=== PATIENT | female | born 2000 | race Caucasian/White ===

== ENCOUNTER 2023-09-07 23:53 | Emergency (ER) | payer OTHER, SELFPAY ==
[2023-09-08 00:04] VITALS: BP 157/98; PULSE 78; RESP 18; TEMP 36.7; O2SAT 99; BMI 48.3
--- NOTE | 2023-09-08 00:18 | CRLHL7_ITS ---
For Patients: As a result of the Century Cures Act, medical imaging exams and procedure reports are released immediately into your electronic medical record. You may view this report before your referring provider. If you have questions, please contact your health care provider. INDICATION: Right upper quadrant abdominal pain. TECHNIQUE: CT abdomen and pelvis acquired with 143 cc Isovue 370 IV contrast. COMPARISON: None. FINDINGS: Lower chest: Unremarkable. Liver: Unremarkable. Normal in size and attenuation. No suspicious masses. Gallbladder and bile ducts: Unremarkable. No stones or inflammation. No biliary ductal dilatation. Spleen: Unremarkable. Normal in size. No masses. Adrenal glands: Unremarkable. No nodules. Pancreas: Unremarkable. No mass or inflammation. Kidneys: Unremarkable. No suspicious masses, stones, or hydronephrosis. GI tract: Unremarkable. Normal in caliber. No evidence of obstruction. Normal appendix. Lymph nodes: No lymphadenopathy. Vasculature: Unremarkable. Omentum/Peritoneum/Abdominal Wall: Unremarkable. No free air or significant free fluid. Pelvis: Unremarkable. Bones: Unremarkable for age. IMPRESSION: No acute abdominal or pelvic abnormality. Please note that all CT scans at this facility use dose modulation, iterative reconstruction, and/or weight-based dosing when appropriate to reduce radiation dose to as low as reasonably achievable. Dictated by Regan Landaverde MD @ 09/08/2023 1:20:11 AM (Electronically Signed)
--- NOTE | 2023-09-08 00:19 | ED.ABDPAIN ---
HPI - Abdominal Pain General Date Seen: 09/08/23 Chief Complaint: Abdominal Pain Stated Complaint: abdominal pain Time Seen by Provider: 09/08/23 00:05 Source: patient Mode of arrival: ambulatory Limitations: no limitations History of Present Illness HPI narrative: Patient is a 23-year-old female comes in with seven months of right upper quadrant abdominal pain. Apparently she was seen in ER in [place] about seven months ago were labs and CT scan were normal. She was scheduled to have an ultrasound done but never followed through with that. She has continued to have intermittent pain since that time which has gotten much worse over the past two days. She did ate some greasy food yesterday that seem to exacerbate her symptoms. She denies constipation but has had some loose stools over the past day or two. No vomiting or fever. She has not taken anything for pain. Related Data Home Medications ?Medication ?Instructions ?Recorded ?Confirmed No Known Home Medications 09/08/23 09/08/23 Allergies Allergy/AdvReac Type Severity Reaction Status Date / Time No Known Drug Allergies Allergy Verified 09/08/23 01:21 Review of Systems Narrative Review of systems is outlined above otherwise noted to be negative. [facility] Medical History (Updated 09/08/23 @ 01:25 by Stanislav Barrow MD) PCOS (polycystic ovarian syndrome) ?E28.2 - Polycystic ovarian syndrome (ICD-10) Surgical History (Updated 09/08/23 @ 00:12 by Santi Mejia RN) No significant past surgical history Social History Smoking Status: Current every day smoker What tobacco products do you use: cigarettes Do you use any of these nicotine containing products: Vaping Products Second hand tobacco smoke exposure: Yes How often do you have a drink containing alcohol: monthly or less AUDIT-C Alcohol total score: 1 Non-prescribed substance use: denies use Exam Narrative: Exam Narrative: Vitals noted. HEENT: Conjunctiva clear. Neck is supple without adenopathy, thyromegaly. Lungs: Clear to auscultation in all [place]. No wheezes, rales, rhonchi. Heart: Regular rate and rhythm without murmur. Abdomen: Obese and soft. Minimal right upper quadrant tenderness. No guarding, rigidity, rebound. Bowel sounds are normal. No palpable masses. Extremities: No cyanosis or edema. Good distal pulses. Skin: No abnormalities noted of the exposed skin. Neurologic: Awake, alert, fully oriented. Neurologic exam is nonfocal. Const: Vital Signs, click to edit/add: Vital Signs - 24 hr 09/08/23 00:04 09/08/23 01:41 09/08/23 01:42 Temperature 98.0 F 98.0 F 98.0 F Pulse Rate [Right Pulse Oximeter] 78 74 74 Respiratory Rate 18 18 18 Blood Pressure [Ri ght Upper Arm] 157/98 H 135/84 135/84 Pulse Oximetry 99 99 Oxygen Delivery Me thod Room Air Room Air Course Course ED Course: Patient seen and examined. Labs and CT of her abdomen are ordered. She does not need anything for pain. Reevaluation(s) Reevaluation #1: CBC shows hemoglobin of 11.8 but is otherwise unremarkable basic metabolic panel, LFTs, lipase are all normal. CT of the abdomen pelvis with IV contrast is unremarkable. Vital Signs Vital signs: Initial Vital Signs Temperature 98.0 F 09/08/23 00:04 Temperature Source Temporal Artery Scan 09/08/23 00:04 Pulse Rate 78 09/08/23 00:04 Respiratory Rate 18 09/08/23 00:04 Blood Pressure 157/98 H 09/08/23 00:04 Blood Pressure Mean 117 H 09/08/23 00:04 Blood Pressure Position Sitting 09/08/23 00:04 Pulse Oximetry 99 09/08/23 00:04 Oxygen Delivery Method Room Air 09/08/23 00:04 Vital Signs Temperature 98.0 F 09/08/23 00:04 Pulse Rate 78 09/08/23 00:04 Respiratory Rate 18 09/08/23 00:04 Blood Pressure 157/98 H 09/08/23 00:04 Pulse Oximetry 99 09/08/23 00:04 Oxygen Delivery Method Room Air 09/08/23 00:04 Temperature 98.0 F 09/08/23 01:42 Pulse Rate 74 09/08/23 01:42 Respiratory Rate 18 09/08/23 01:42 Blood Pressure 135/84 09/08/23 01:42 Pulse Oximetry 99 09/08/23 01:41 Oxygen Delivery Method Room Air 09/08/23 01:41 MDM - Abdominal Pain Lab Data Labs: Lab Results 09/08/23 Range/Units 00:40 WBC 6.72 (4.50-11.00) K/uL RBC 4.15 (4.00-5.20) m/uL Hgb 11.8 L (12.0-16.0) gm/dL Hct 36.6 (33.0-51.0) % MCV 88 (80-100) fL MCH 28 (26-34) pg MCHC 32 (32-36) gm/dL RDW Coeff of Arnel 14.0 (11.5-15.5) % Plt Count 301 (140-440) K/uL Neut % (Auto) 54.0 (42.0-72.0) % Lymph % (Auto) 37.2 (20-44) % [place] % (Auto) 4.3 (0.0-11.0) % Eos % (Auto) 3.9 (0.0-7.0) % Baso % (Auto) 0.3 (0.0-3.0) % Neut # (Auto) 3.63 (1.7-7.0) K/uL Lymph # (Auto) 2.50 (0.90-2.90) K/uL [place] # (Auto) 0.30 (0.00-0.90) K/UL Eos # (Auto) 0.26 (0.00-0.50) K/uL Baso # (Auto) 0.02 (0.00-0.30) K/uL Abs Immat Gran (auto) 0.02 (0.00-0.30) K/uL Imm/Tot Granulo (auto) 0.3 % Sodium 140 (135-149) mmol/L Potassium 3.8 (3.6-5.1) mmol/L Chloride 106 (96-114) mmol/L Carbon Dioxide 30 (20-32) mmol/L Anion Gap 4 L (7-15) mEq/L BUN 12 (5-24) mg/dL Creatinine 0.6 (0.5-1.5) mg/dL Estimated Creat Clear 130.10 Estimated GFR 128 ml/min Glucose 118 H (60-115) mg/dL Calcium 8.6 (8.4-10.6) mg/dL Total Bilirubin 0.4 (0.1-1.5) mg/dL Direct Bilirubin 0.4 (0.0-0.5) mg/dL AST 26 (12-35) U/L ALT 26 (4-35) U/L Alkaline Phosphatase 94 (40-150) U/L Total Protein 6.9 (6.0-8.3) g/dL Albumin 4.2 (3.3-5.0) g/dL Lipase 53 (23-300) U/L Discharge Plan Discharge Clinical Impression: Abdominal pain Patient Disposition: Home, Self-Care Condition: Stable Additional Instructions: Ultrasound @1000 at [facility]. Check in around 0930 at ER desk. Nothing to eat/drink after 0400. Call the [facility] to get set up with a PCP and to go over your US results. Follow a low fat diet and use Tylenol or Ibuprofen for pain. Prescriptions: No Action No Known Home Medications Follow Up/Referrals: Provider,Not a Local [Primary Care Provider] - Stand Alone Forms: [employer] Info Instructions
[2023-09-08 00:48] LABS: Basophils Absolute Auto 0.02 K/uL (0.00-0.30); Basophils Percent Auto 0.3 % (0.0-3.0); Eosinophils Absolute Auto 0.26 K/uL (0.00-0.50); Eosinophils Percent Auto 3.9 % (0.0-7.0); Hematocrit 36.6 % (33.0-51.0); Hemoglobin* 11.8 gm/dL (12.0-16.0); Immature Granulocytes Abs Auto 0.02 K/uL (0.00-0.30); Immature Granulocytes Pct Auto 0.3 %; Lymphocytes Percent Auto 37.2 % (20-44); Mean Corpuscular HGB Conc 32 gm/dL (32-36); Mean Corpuscular Hemoglobin 28 pg (26-34); Mean Corpuscular Volume 88 fL (80-100); Monocytes Percent Auto 4.3 % (0.0-11.0); Neutrophils Absolute Auto 3.63 K/uL (1.7-7.0); Platelet Count* 301 K/uL (140-440); Red Blood Count 4.15 m/uL (4.00-5.20); White Blood Count* 6.72 K/uL (4.50-11.00)
[2023-09-08 00:52] LABS: Slide Review Reflex No
[2023-09-08 01:01] LABS: Chloride* 106 mmol/L (96-114)
[2023-09-08 01:02] LABS: Albumin* 4.2 g/dL (3.3-5.0); Potassium* 3.8 mmol/L (3.6-5.1); Sodium* 140 mmol/L (135-149)
[2023-09-08 01:04] LABS: Creatinine* 0.6 mg/dL (0.5-1.5); Estimated Glomerular Filt Rate 128 ml/min
[2023-09-08 01:05] LABS: Alanine Aminotransferase* 26 U/L (4-35); Alkaline Phosphatase* 94 U/L (40-150); Anion Gap 4 mEq/L (7-15); Aspartate Amino Transferase* 26 U/L (12-35); Bilirubin Direct* 0.4 mg/dL (0.0-0.5); Bilirubin Total* 0.4 mg/dL (0.1-1.5); Blood Urea Nitrogen* 12 mg/dL (5-24); Calcium* 8.6 mg/dL (8.4-10.6); Carbon Dioxide* 30 mmol/L (20-32); Glucose* 118 mg/dL (60-115); Lipase* 53 U/L (23-300); Total Protein* 6.9 g/dL (6.0-8.3)
[2023-09-08 01:41] VITALS: BP 135/84; PULSE 74; RESP 18; TEMP 36.7; O2SAT 99
[2023-09-08 01:42] VITALS: BP 135/84; PULSE 74; RESP 18; TEMP 36.7
== END 2023-09-08 01:42 | disposition home or self-care (01) ==
PROVIDERS: Emergency Provider Family Medicine
DX: R10.11 Right upper quadrant pain (principal)
CPT/HCPCS: 36415; 74177; 80048; 80076; 83690; 85025; 99283; 99284; Q9967

== ENCOUNTER 2023-09-08 09:23 | Outpatient (CLI) | payer OTHER, SELFPAY ==
--- NOTE | 2023-09-08 10:15 | CRLHL7_ITS ---
For Patients: As a result of the Century Cures Act, medical imaging exams and procedure reports are released immediately into your electronic medical record. You may view this report before your referring provider. If you have questions, please contact your health care provider. INDICATION: Abdomen pain. TECHNIQUE: Ultrasound abdomen limited. COMPARISON: None. FINDINGS: Visualized liver: Unremarkable Gallbladder: No stones or sludge. Normal wall thickness. No pericholecystic fluid. Common bile duct: 4 mm IMPRESSION: Normal ultrasound of the gallbladder and common bile duct. Dictated by Bryn Terry MD @ 09/10/2023 11:06:53 PM (Electronically Signed)
== END 2023-09-08 09:24 | disposition home or self-care (01) ==
PROVIDERS: Visit Provider Family Medicine
DX: R10.11 Right upper quadrant pain (principal)
CPT/HCPCS: 76705